=== PATIENT | female | born 1960 | race Caucasian/White ===

== ENCOUNTER → 2016-12-05 | Outpatient (CLI) | payer OTHER ==
[~2016-12-05] MED LIST: AUGMENTIN 875 M1 TAB PO; CIPRO250 MG PO; CORDROL20 MG PO; FLEXERIL10 MG PO; GEODON80 MG PO; KLONOPIN2 MG PO; LITHIUM CARBONATE 300 MG PO; MOTRIN800 MG PO; Metformin Hydr500 MG PO; NAVANE5 MG PO; PREDNICOT10 MG PO; PYRIDIUM200 MG PO; VENTOLIN0.09 MG/AC INH; VIBRAMYCIN100 MG PO; XANAX2 MG PO; ZOCOR40 MG PO
[2016-12-05 11:04] LABS: BASO # 0.1 10*3/uL (0.0-0.1); BASO % 0.9 % (0.0-1.0); EOS # 0.4 10*3/uL (0.0-0.4); EOS % 4.1 % (1.0-4.0); HEMATOCRIT 42.6 % (37.0-47.0); HEMOGLOBIN 13.4 g/dl (12.0-16.0); LYMPH # 2.9 10*3/uL (1.3-4.4); LYMPH % 31.5 % (27.0-41.0); MEAN CELL VOLUME 94.7 fl (81.0-99.0); MEAN CORPUSCULAR HGB 29.8 pg (27.0-31.0); MEAN CORPUSCULAR HGB CONC 31.5 g/dl (33.0-37.0); MEAN PLATELET VOLUME 10.3 fl (9.6-12.3); MONO # 0.6 10*3/uL (0.1-1.0); MONO % 6.9 % (3.0-9.0); NEUT # 5.2 10*3/uL (2.3-7.9); NEUT % 56.3 % (47.0-73.0); PLATELET COUNT AUTOMATED 239 10*3/uL (130-400); WHITE BLOOD COUNT 9.2 10*3/uL (4.8-10.8)
== END | disposition home or self-care (01) ==
LOC: LAB 10:35
PROVIDERS: Physician Assistant
DX: Z51.81 Encounter for therapeutic drug level monitoring (principal); Z79.899 Other long term (current) drug therapy

== ENCOUNTER 2017-03-28 16:14 | Inpatient (IN) | payer OTHER ==
[~2017-03-28] VITALS: Ht 157.5 cm; Wt 65.5 kg
[2017-03-28] VITALS (7 sets, daily range): BP systolic 120–156; BP diastolic 48–97
--- NOTE | ~2017-03-28 | ST ---
[place], [place] EXERCISE STRESS TEST REPORT NAME: MEL ESPITIA [facility] #: [id number] UNIT #: [id number] ROOM: 525 DOCTOR: MATY STAHL MD BIRTHDATE: [birth year] DOS: 03/29/2017 LEXISCAN STRESS EKG. Referred by Dr. Guzman. INDICATION: Central chest pain. The patient underwent standard protocol Lexiscan stress EKG after attempting treadmill protocol, but she did not achieve peak heart rate. The patient's baseline EKG showed normal sinus with a heart rate of 65 with a blood pressure of 132/84. The patient's peak heart rate was 121 with a blood pressure of 132/86. The patient had no EKG changes, chest pain or arrhythmias noted. SUMMARY OF FINDINGS: Unremarkable Lexiscan stress EKG. Please see separate report for results. MATY STAHL MD CM:STRESS:EXERCISE STRESS TEST REPORT [id number] MATY STAHL MD
[~2017-03-28 16:14] MED LIST changes: +LITHIUM CARBON300 M2 PO; -LITHIUM CARBONATE 300 MG PO; +XANAX2 M1 PO; -XANAX2 MG PO
[2017-03-28 16:33] LABS: BASO # 0.1 10*3/uL (0.0-0.1); BASO % 0.8 % (0.0-1.0); EOS # 0.7 10*3/uL (0.0-0.4); EOS % 5.7 % (1.0-4.0); HEMATOCRIT 41.3 % (37.0-47.0); HEMOGLOBIN 13.6 g/dl (12.0-16.0); LYMPH # 3.4 10*3/uL (1.3-4.4); MEAN CELL VOLUME 90.8 fl (81.0-99.0); MEAN CORPUSCULAR HGB 29.9 pg (27.0-31.0); MEAN CORPUSCULAR HGB CONC 32.9 g/dl (33.0-37.0); MEAN PLATELET VOLUME 10.6 fl (9.6-12.3); MONO # 0.8 10*3/uL (0.1-1.0); MONO % 6.7 % (3.0-9.0); NEUT # 6.4 10*3/uL (2.3-7.9); NEUT % 56.5 % (47.0-73.0); PLATELET COUNT AUTOMATED 238 10*3/uL (130-400); RED BLOOD COUNT 4.55 10*6/uL (4.10-5.10); WHITE BLOOD COUNT 11.4 10*3/uL (4.8-10.8)
[2017-03-28 16:44] LABS: ACT PARTIAL THROMBO TIME 25.4 SECONDS (20.8-31.5)
[2017-03-28 16:50] LABS: ALBUMIN 3.7 gm/dl (3.1-4.5); ALKALINE PHOSPHATASE 139 U/L (45-117); BUN 5 mg/dl (7-24); CHLORIDE 108 mmol/L (98-107); CREATININE 0.78 mg/dL (0.55-1.02); MAGNESIUM 2.2 mg/dL (1.5-2.1); POTASSIUM 3.7 mmol/L (3.5-5.1); SGOT/AST 18 IU/L (3-35); SGPT/ALT 22 U/L (12-78); SODIUM 138 mmol/L (136-145); TOTAL PROTEIN 7.2 gm/dL (6.4-8.2)
[2017-03-28 16:51] LABS: TROPONIN I < 0.015 ng/ml (<0.045)
[2017-03-28] MEDS ORDERED: ZANTAC 150150 MG PO (18:32)
[2017-03-28] MEDS ORDERED: AMBIEN10 M1 PO (18:33)
[2017-03-28] MEDS ORDERED: TRINTELLIX20 MG PO (18:33)
[2017-03-28] MEDS ORDERED: COGENTIN0.5 MG PO (18:33)
[2017-03-28] MEDS ORDERED: INCRUSE ELLI62.5 MCG INH (18:34)
[2017-03-28] MEDS ORDERED: PROVENTIL HFA6.7 GM INH (18:36)
[2017-03-29] VITALS: BP 126/65
[2017-03-29 06:25] LABS: BASO # 0.1 10*3/uL (0.0-0.1); BASO % 0.7 % (0.0-1.0); EOS # 0.6 10*3/uL (0.0-0.4); EOS % 6.3 % (1.0-4.0); HEMATOCRIT 39.6 % (37.0-47.0); HEMOGLOBIN 12.7 g/dl (12.0-16.0); LYMPH # 2.6 10*3/uL (1.3-4.4); LYMPH % 27.4 % (27.0-41.0); MEAN CELL VOLUME 92.1 fl (81.0-99.0); MEAN CORPUSCULAR HGB 29.5 pg (27.0-31.0); MEAN CORPUSCULAR HGB CONC 32.1 g/dl (33.0-37.0); MEAN PLATELET VOLUME 11.1 fl (9.6-12.3); MONO # 0.6 10*3/uL (0.1-1.0); MONO % 6.1 % (3.0-9.0); NEUT # 5.6 10*3/uL (2.3-7.9); NEUT % 59.3 % (47.0-73.0); PLATELET COUNT AUTOMATED 228 10*3/uL (130-400); RED CELL DISTRI WIDTH 13.1 % (0-14.5); WHITE BLOOD COUNT 9.5 10*3/uL (4.8-10.8)
[2017-03-29 06:27] LABS: ALBUMIN 3.3 gm/dl (3.1-4.5); ALKALINE PHOSPHATASE 124 U/L (45-117); BUN 6 mg/dl (7-24); CHLORIDE 111 mmol/L (98-107); CHOLESTEROL 142 mg/dL (<200); FREE T4 0.84 ng/dl (0.76-1.46); HDL CHOLESTEROL 38 mg/dl (40-60); LDL CHOLESTEROL 67 mg/dL (9-159); MAGNESIUM 2.2 mg/dL (1.5-2.1); PHOSPHOROUS 3.5 mg/dL (2.5-4.9); POTASSIUM 3.9 mmol/L (3.5-5.1); SGOT/AST 15 IU/L (3-35); SGPT/ALT 20 U/L (12-78); SODIUM 144 mmol/L (136-145); TOTAL PROTEIN 6.8 gm/dL (6.4-8.2); TRIGLYCERIDES 185 mg/dl (<150); VLDL CHOLESTEROL 37 mg/dL (6-40)
[2017-03-29 08:00] VITALS: BP 110/66
[2017-03-29 08:05] LABS: VITAMIN D, 25-HYDROXY 26.3 ng/mL (30-100)
[2017-03-29 16:00] VITALS: BP 130/82
== END 2017-03-29 18:40 | disposition home or self-care (01) | DRG 880 ==
LOC: ED 16:14 → EDHOLD 17:42 → 5E 17:42
PROVIDERS: Emergency Medicine; Family Medicine; ADMIT Internal Medicine
PROC: 4A02XM4 Measurement of Cardiac Total Activity, External Approach (ICD-10-PCS; principal; 2017-03-29)
PROC: 3E073KZ Introduction of Other Diagnostic Substance into Coronary Artery, Percutaneous Approach (ICD-10-PCS; 2017-03-29)
DX: F41.9 Anxiety disorder, unspecified (principal); E87.8 Other disorders of electrolyte and fluid balance, not elsewhere classified; I50.9 Heart failure, unspecified; E83.41 Hypermagnesemia; E11.9 Type 2 diabetes mellitus without complications; D72.829 Elevated white blood cell count, unspecified; J44.9 Chronic obstructive pulmonary disease, unspecified; F31.9 Bipolar disorder, unspecified; R03.0 Elevated blood-pressure reading, without diagnosis of hypertension; E78.5 Hyperlipidemia, unspecified; F43.10 Post-traumatic stress disorder, unspecified; F42.9 Obsessive-compulsive disorder, unspecified; F17.210 Nicotine dependence, cigarettes, uncomplicated; I25.2 Old myocardial infarction; Z98.51 Tubal ligation status; Z90.49 Acquired absence of other specified parts of digestive tract; Z90.710 Acquired absence of both cervix and uterus; Z88.5 Allergy status to narcotic agent; Z91.018 Allergy to other foods; Z82.49 Family history of ischemic heart disease and other diseases of the circulatory system; Z80.8 Family history of malignant neoplasm of other organs or systems; Z83.3 Family history of diabetes mellitus; Z71.6 Tobacco abuse counseling

== ENCOUNTER 2017-04-14 20:19 | Emergency (ER) | payer OTHER ==
[~2017-04-14] VITALS: Ht 157.4 cm; Wt 63.5 kg
[~2017-04-14 20:19] MED LIST changes: +AMBIEN10 M1 PO; +COGENTIN0.5 MG PO; +INCRUSE ELLI62.5 MCG INH; +PROVENTIL HFA6.7 GM INH; +TRINTELLIX20 MG PO; +ZANTAC 150150 MG PO
[2017-04-14 20:24] VITALS: BP 147/74
== END 2017-04-14 21:49 | disposition home or self-care (01) ==
LOC: ED 20:19
DX: S60.012A Contusion of left thumb without damage to nail, initial encounter (principal); F17.200 Nicotine dependence, unspecified, uncomplicated; Z90.49 Acquired absence of other specified parts of digestive tract; Z98.890 Other specified postprocedural states; Z98.51 Tubal ligation status; Z79.899 Other long term (current) drug therapy; Z88.5 Allergy status to narcotic agent; Z91.018 Allergy to other foods; W01.0XXA Fall on same level from slipping, tripping and stumbling without subsequent striking against object, initial encounter; Y93.01 Activity, walking, marching and hiking; Y92.89 Other specified places as the place of occurrence of the external cause; Y99.9 Unspecified external cause status

== ENCOUNTER 2017-11-01 08:55 | Emergency (ER) | payer OTHER ==
[~2017-11-01] VITALS: Wt 60.8 kg
[2017-11-01 09:02] VITALS: BP 129/93
[2017-11-01] MEDS ORDERED: GEODON20 MG PO (09:04)
[2017-11-01 09:15] LABS: BASO # 0.1 10*3/uL (0.0-0.1); BASO % 0.7 % (0.0-1.0); EOS # 0.4 10*3/uL (0.0-0.4); EOS % 4.8 % (1.0-4.0); HEMATOCRIT 38.9 % (37.0-47.0); HEMOGLOBIN 12.5 g/dl (12.0-16.0); LYMPH # 1.8 10*3/uL (1.3-4.4); LYMPH % 20.6 % (27.0-41.0); MEAN CELL VOLUME 91.7 fl (81.0-99.0); MEAN CORPUSCULAR HGB 29.5 pg (27.0-31.0); MEAN CORPUSCULAR HGB CONC 32.1 g/dl (33.0-37.0); MEAN PLATELET VOLUME 10.3 fl (9.6-12.3); MONO # 0.7 10*3/uL (0.1-1.0); MONO % 7.7 % (3.0-9.0); NEUT # 5.7 10*3/uL (2.3-7.9); PLATELET COUNT AUTOMATED 223 10*3/uL (130-400); RED BLOOD COUNT 4.24 10*6/uL (4.10-5.10); RED CELL DISTRI WIDTH 13.5 % (0-14.5); WHITE BLOOD COUNT 8.7 10*3/uL (4.8-10.8)
[2017-11-01 09:26] LABS: ALBUMIN 3.7 gm/dl (3.1-4.5); BUN 6 mg/dl (7-24)
[2017-11-01 09:41] LABS: ALKALINE PHOSPHATASE 124 U/L (45-117); CHLORIDE 110 mmol/L (98-107); CREATININE 0.81 mg/dL (0.55-1.02); POTASSIUM 3.8 mmol/L (3.5-5.1); SGOT/AST 15 IU/L (3-35); SGPT/ALT 16 U/L (12-78); SODIUM 142 mmol/L (136-145); TOTAL PROTEIN 7.1 gm/dL (6.4-8.2)
[2017-11-01] MEDS ORDERED: PROAIR HFA8.5 GM INH (10:43)
[2017-11-01] MEDS ORDERED: PREDNISONE20 M1 PO (10:43)
[2017-11-01] MEDS ORDERED: AUGMENTIN 875875 MG PO (10:43)
== END 2017-11-01 10:46 | disposition home or self-care (01) ==
LOC: ED 08:55
PROVIDERS: Emergency Medicine
DX: J20.9 Acute bronchitis, unspecified (principal); F17.200 Nicotine dependence, unspecified, uncomplicated; J44.9 Chronic obstructive pulmonary disease, unspecified; Z90.49 Acquired absence of other specified parts of digestive tract; Z98.890 Other specified postprocedural states; Z90.710 Acquired absence of both cervix and uterus; Z98.51 Tubal ligation status; Z79.899 Other long term (current) drug therapy; Z88.5 Allergy status to narcotic agent; Z91.018 Allergy to other foods

== ENCOUNTER → 2017-12-21 | Outpatient (CLI) | payer OTHER ==
[~2017-12-21] MED LIST changes: +AUGMENTIN 875875 MG PO; +GEODON20 MG PO; +PREDNISONE20 M1 PO; +PROAIR HFA8.5 GM INH
[2017-12-21 09:08] LABS: BASO # 0.1 10*3/uL (0.0-0.1); BASO % 0.9 % (0.0-1.0); EOS # 0.7 10*3/uL (0.0-0.4); EOS % 6.7 % (1.0-4.0); HEMATOCRIT 43.6 % (37.0-47.0); HEMOGLOBIN 13.7 g/dl (12.0-16.0); LYMPH # 2.5 10*3/uL (1.3-4.4); LYMPH % 23.6 % (27.0-41.0); MEAN CELL VOLUME 94.6 fl (81.0-99.0); MEAN CORPUSCULAR HGB 29.7 pg (27.0-31.0); MEAN CORPUSCULAR HGB CONC 31.4 g/dl (33.0-37.0); MEAN PLATELET VOLUME 10.3 fl (9.6-12.3); MONO # 0.8 10*3/uL (0.1-1.0); MONO % 7.9 % (3.0-9.0); NEUT # 6.3 10*3/uL (2.3-7.9); NEUT % 60.6 % (47.0-73.0); PLATELET COUNT AUTOMATED 212 10*3/uL (130-400); RED BLOOD COUNT 4.61 10*6/uL (4.10-5.10); RED CELL DISTRI WIDTH 13.2 % (0-14.5); WHITE BLOOD COUNT 10.4 10*3/uL (4.8-10.8)
[2017-12-21 09:43] LABS: ALBUMIN 3.8 gm/dl (3.1-4.5); ALKALINE PHOSPHATASE 131 U/L (45-117); BUN 14 mg/dl (7-24); CHLORIDE 110 mmol/L (98-107); CREATININE 0.95 mg/dL (0.55-1.02); POTASSIUM 4.7 mmol/L (3.5-5.1); SGOT/AST 17 IU/L (3-35); SGPT/ALT 26 U/L (12-78); SODIUM 141 mmol/L (136-145); TOTAL PROTEIN 7.3 gm/dL (6.4-8.2)
[2017-12-21 12:51] LABS: VITAMIN D, 25-HYDROXY 15.1 ng/mL (30-100)
== END | disposition home or self-care (01) ==
LOC: LAB 08:46
PROVIDERS: Physician Assistant
DX: Z51.81 Encounter for therapeutic drug level monitoring (principal); Z79.899 Other long term (current) drug therapy

== ENCOUNTER 2018-04-17 16:57 | Emergency (ER) | payer OTHER ==
[~2018-04-17] VITALS: Ht 157.4 cm; Wt 55.3 kg
[~2018-04-17 16:57] MED LIST changes: +AUGMENTIN 875-875 MG PO
[2018-04-17 17:00] VITALS: BP 138/87
[2018-04-17] MEDS ORDERED: METFORMIN HYDR500 MG PO (17:45)
== END 2018-04-17 18:14 | disposition home or self-care (01) ==
LOC: ED 16:57
DX: Z76.0 Encounter for issue of repeat prescription (principal); R51 Headache; F17.200 Nicotine dependence, unspecified, uncomplicated; Z88.6 Allergy status to analgesic agent; Z91.018 Allergy to other foods; Z79.84 Long term (current) use of oral hypoglycemic drugs; Z79.899 Other long term (current) drug therapy; Z90.49 Acquired absence of other specified parts of digestive tract; Z90.710 Acquired absence of both cervix and uterus; Z98.51 Tubal ligation status; Z90.89 Acquired absence of other organs

== ENCOUNTER 2018-04-27 11:54 | Emergency (ER) | payer OTHER ==
[~2018-04-27] VITALS: Ht 157.4 cm; Wt 55.3 kg
[~2018-04-27 11:54] MED LIST changes: +METFORMIN HYDR500 MG PO
[2018-04-27 12:00] VITALS: BP 120/61
[2018-04-27] MEDS ORDERED: DOXEPIN HCL25 MG PO (12:03)
[2018-04-27] MEDS ORDERED: Motrin,Rufen800 MG PO (13:54)
== END 2018-04-27 14:17 | disposition home or self-care (01) ==
LOC: ED 11:54
DX: S40.021A Contusion of right upper arm, initial encounter (principal); F17.200 Nicotine dependence, unspecified, uncomplicated; I50.9 Heart failure, unspecified; J44.9 Chronic obstructive pulmonary disease, unspecified; E11.9 Type 2 diabetes mellitus without complications; E78.5 Hyperlipidemia, unspecified; E78.00 Pure hypercholesterolemia, unspecified; F42.9 Obsessive-compulsive disorder, unspecified; I25.2 Old myocardial infarction; Z90.49 Acquired absence of other specified parts of digestive tract; Z98.890 Other specified postprocedural states; Z90.710 Acquired absence of both cervix and uterus; Z98.51 Tubal ligation status; Z88.5 Allergy status to narcotic agent; Z91.018 Allergy to other foods; Z79.899 Other long term (current) drug therapy; W10.8XXA Fall (on) (from) other stairs and steps, initial encounter; Y93.89 Activity, other specified; Y92.099 Unspecified place in other non-institutional residence as the place of occurrence of the external cause; Y99.9 Unspecified external cause status

== ENCOUNTER → 2018-05-09 | Outpatient (CLI) | payer OTHER ==
[~2018-05-09] MED LIST changes: +DOXEPIN HCL25 MG PO; +Motrin,Rufen800 MG PO
== END | disposition home or self-care (01) ==
LOC: RAD 03:32 → ORTHO 03:32
DX: M25.521 Pain in right elbow (principal); J43.9 Emphysema, unspecified

== ENCOUNTER → 2018-05-23 | Outpatient (CLI) | payer OTHER | END | disposition home or self-care (01) | LOC: ORTHO 02:36 → RAD 08:00 → ORTHO 16:31 | DX: M25.521 Pain in right elbow (principal); M25.531 Pain in right wrist ==

== ENCOUNTER 2018-06-28 22:39 | Inpatient (IN) | payer OTHER ==
[~2018-06-28] VITALS: Ht 157.4 cm; Wt 60.9 kg
--- NOTE | ~2018-06-28 | EKG ---
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
--- NOTE | ~2018-06-28 | EKG ---
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
--- NOTE | ~2018-06-28 | EKG ---
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
--- NOTE | ~2018-06-28 | EKG ---
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
[2018-06-28 22:44] VITALS: BP 123/78
[2018-06-28 23:31] VITALS: BP 126/75
[2018-06-28 23:41] LABS: BASO # 0.1 10*3/uL (0.0-0.1); BASO % 0.6 % (0.0-1.0); EOS # 0.5 10*3/uL (0.0-0.4); EOS % 3.2 % (1.0-4.0); HEMATOCRIT 42.2 % (37.0-47.0); HEMOGLOBIN 13.4 g/dl (12.0-16.0); LYMPH # 3.5 10*3/uL (1.3-4.4); LYMPH % 24.2 % (27.0-41.0); MEAN CELL VOLUME 93.4 fl (81.0-99.0); MEAN CORPUSCULAR HGB 29.6 pg (27.0-31.0); MEAN CORPUSCULAR HGB CONC 31.8 g/dl (33.0-37.0); MEAN PLATELET VOLUME 10.7 fl (9.6-12.3); MONO # 0.8 10*3/uL (0.1-1.0); MONO % 5.7 % (3.0-9.0); NEUT # 9.5 10*3/uL (2.3-7.9); PLATELET COUNT AUTOMATED 214 10*3/uL (130-400); RED BLOOD COUNT 4.52 10*6/uL (4.10-5.10); RED CELL DISTRI WIDTH 13.1 % (0-14.5); WHITE BLOOD COUNT 14.5 10*3/uL (4.8-10.8)
[2018-06-28 23:43] VITALS: BP 114/72
[2018-06-28 23:51] LABS: ACT PARTIAL THROMBO TIME 24.8 SECONDS (20.8-31.5)
[2018-06-28 23:53] VITALS: BP 118/78
[2018-06-28 23:58] LABS: ALKALINE PHOSPHATASE 107 U/L (45-117); BUN 10 mg/dl (7-24); CHLORIDE 106 mmol/L (98-107); POTASSIUM 3.1 mmol/L (3.5-5.1); SGOT/AST 22 IU/L (3-35); SGPT/ALT 26 U/L (12-78); SODIUM 138 mmol/L (136-145); TOTAL PROTEIN 7.3 gm/dL (6.4-8.2)
[2018-06-29 00:03] VITALS: BP 117/76
[2018-06-29 00:06] LABS: TROPONIN I < 0.015 ng/ml (<0.045)
[2018-06-29 00:19] VITALS: BP 128/78
[2018-06-29 01:20] VITALS: BP 113/69
[2018-06-29 02:00] VITALS: BP 115/70
[2018-06-29 02:13] VITALS: BP 156/88
[2018-06-29 05:00] LABS: BASO # 0.1 10*3/uL (0.0-0.1); BASO % 0.6 % (0.0-1.0); EOS # 0.4 10*3/uL (0.0-0.4); EOS % 4.3 % (1.0-4.0); HEMATOCRIT 41.1 % (37.0-47.0); LYMPH # 2.8 10*3/uL (1.3-4.4); LYMPH % 29.4 % (27.0-41.0); MEAN CELL VOLUME 93.6 fl (81.0-99.0); MEAN CORPUSCULAR HGB 29.6 pg (27.0-31.0); MEAN CORPUSCULAR HGB CONC 31.6 g/dl (33.0-37.0); MEAN PLATELET VOLUME 10.1 fl (9.6-12.3); MONO # 0.7 10*3/uL (0.1-1.0); MONO % 7.3 % (3.0-9.0); NEUT # 5.6 10*3/uL (2.3-7.9); NEUT % 58.2 % (47.0-73.0); PLATELET COUNT AUTOMATED 193 10*3/uL (130-400); RED BLOOD COUNT 4.39 10*6/uL (4.10-5.10); RED CELL DISTRI WIDTH 13.2 % (0-14.5); WHITE BLOOD COUNT 9.6 10*3/uL (4.8-10.8)
[2018-06-29 05:16] LABS: ALBUMIN 3.4 gm/dl (3.1-4.5); ALKALINE PHOSPHATASE 100 U/L (45-117); BUN 8 mg/dl (7-24); CHLORIDE 111 mmol/L (98-107); CREATININE 0.74 mg/dL (0.55-1.02); LIPASE 138 U/L (73-393); PHOSPHOROUS 3.7 mg/dL (2.5-4.9); SGOT/AST 17 IU/L (3-35); SGPT/ALT 21 U/L (12-78); SODIUM 144 mmol/L (136-145); TOTAL PROTEIN 6.9 gm/dL (6.4-8.2)
[2018-06-29 05:22] LABS: POTASSIUM 4.1 mmol/L (3.5-5.1)
[2018-06-29 05:25] LABS: THYROID STIM HORMONE (HS) 0.879 uIU/ml (0.358-4.75)
== END 2018-06-29 11:35 | disposition home or self-care (01) | DRG 205 ==
LOC: ED 22:39 → EDHOLD 06-29 01:25 → 4E 06-29 01:38
PROVIDERS: Emergency Medicine Emergency Medical Services; Internal Medicine
DX: M94.0 Chondrocostal junction syndrome [Tietze] (principal); J18.9 Pneumonia, unspecified organism; F41.9 Anxiety disorder, unspecified; K21.9 Gastro-esophageal reflux disease without esophagitis; F31.9 Bipolar disorder, unspecified; I50.9 Heart failure, unspecified; J44.9 Chronic obstructive pulmonary disease, unspecified; E78.5 Hyperlipidemia, unspecified; F42.9 Obsessive-compulsive disorder, unspecified; F43.10 Post-traumatic stress disorder, unspecified; F17.200 Nicotine dependence, unspecified, uncomplicated; E87.6 Hypokalemia; Z71.6 Tobacco abuse counseling; Z90.49 Acquired absence of other specified parts of digestive tract; I25.2 Old myocardial infarction; Z90.710 Acquired absence of both cervix and uterus; Z88.5 Allergy status to narcotic agent; Z88.8 Allergy status to other drugs, medicaments and biological substances; Z98.51 Tubal ligation status; Z80.8 Family history of malignant neoplasm of other organs or systems; Z82.49 Family history of ischemic heart disease and other diseases of the circulatory system; Z83.3 Family history of diabetes mellitus; Z79.84 Long term (current) use of oral hypoglycemic drugs; Z79.899 Other long term (current) drug therapy; I25.10 Atherosclerotic heart disease of native coronary artery without angina pectoris

== ENCOUNTER 2018-08-20 21:53 | Emergency (ER) | payer OTHER ==
[~2018-08-20] VITALS: Ht 157.4 cm; Wt 49.9 kg
[2018-08-20 21:57] VITALS: BP 145/85
[2018-08-20] MEDS ORDERED: Motrin,Rufen800 MG PO (23:46)
== END 2018-08-21 00:05 | disposition home or self-care (01) ==
LOC: ED 21:53
DX: S60.222A Contusion of left hand, initial encounter (principal); F17.200 Nicotine dependence, unspecified, uncomplicated; Z91.018 Allergy to other foods; Z88.6 Allergy status to analgesic agent; Z79.899 Other long term (current) drug therapy; W22.03XA Walked into furniture, initial encounter; Y93.89 Activity, other specified; Y92.090 Kitchen in other non-institutional residence as the place of occurrence of the external cause; Y99.8 Other external cause status

== ENCOUNTER 2018-09-28 10:38 | Emergency (ER) | payer OTHER ==
[~2018-09-28] VITALS: Ht 157.4 cm; Wt 59.0 kg
[2018-09-28 11:42] VITALS: BP 116/79
[2018-09-28] MEDS ORDERED: TESSALON PERLE100 MG PO (12:20)
[2018-09-28] MEDS ORDERED: VIBRAMYCIN100 MG PO (12:20)
[2018-09-28] MEDS ORDERED: PREDNISONE50 MG PO (12:20)
== END 2018-09-28 12:31 | disposition home or self-care (01) ==
LOC: ED 10:38
DX: J44.1 Chronic obstructive pulmonary disease with (acute) exacerbation (principal); I25.10 Atherosclerotic heart disease of native coronary artery without angina pectoris; E11.9 Type 2 diabetes mellitus without complications; K21.9 Gastro-esophageal reflux disease without esophagitis; I25.2 Old myocardial infarction; E78.5 Hyperlipidemia, unspecified; F17.210 Nicotine dependence, cigarettes, uncomplicated; Z91.018 Allergy to other foods; Z88.5 Allergy status to narcotic agent; Z79.899 Other long term (current) drug therapy; Z79.84 Long term (current) use of oral hypoglycemic drugs; Z90.49 Acquired absence of other specified parts of digestive tract; Z90.710 Acquired absence of both cervix and uterus

== ENCOUNTER 2018-11-08 15:26 | Emergency (ER) | payer OTHER ==
[~2018-11-08] VITALS: Wt 56.2 kg
[2018-11-08 15:26] VITALS: BP 131/73
[~2018-11-08 15:26] MED LIST changes: +PREDNISONE50 MG PO; +TESSALON PERLE100 MG PO
== END 2018-11-08 16:13 | disposition home or self-care (01) ==
LOC: ED 15:26
DX: R51 Headache (principal); R22.0 Localized swelling, mass and lump, head; F17.200 Nicotine dependence, unspecified, uncomplicated; Z91.018 Allergy to other foods; Z88.5 Allergy status to narcotic agent; Z79.899 Other long term (current) drug therapy; Z79.2 Long term (current) use of antibiotics; Z90.49 Acquired absence of other specified parts of digestive tract; Z90.710 Acquired absence of both cervix and uterus

== ENCOUNTER 2019-05-13 10:50 | Emergency (ER) | payer OTHER ==
[~2019-05-13] VITALS: Ht 157.4 cm; Wt 61.2 kg
[2019-05-13 10:53] VITALS: BP 121/79
[2019-05-13] MEDS ORDERED: TESSALON PERLE100 M1 PO (12:58)
[2019-05-13] MEDS ORDERED: PREDNISONE20 M1 PO (12:58)
[2019-05-13] MEDS ORDERED: PROVENTIL HFA6.7 GM INH (12:58)
== END 2019-05-13 13:25 | disposition home or self-care (01) ==
LOC: ED 10:50
DX: J44.1 Chronic obstructive pulmonary disease with (acute) exacerbation (principal); F17.200 Nicotine dependence, unspecified, uncomplicated; Z91.018 Allergy to other foods; Z88.5 Allergy status to narcotic agent; Z79.899 Other long term (current) drug therapy

== ENCOUNTER 2019-10-27 21:34 | Emergency (ER) | payer OTHER ==
[~2019-10-27] VITALS: Ht 157.4 cm; Wt 61.7 kg
[~2019-10-27 21:34] MED LIST changes: +TESSALON PERLE100 M1 PO
[2019-10-27 21:42] VITALS: BP 142/78
[2019-10-27 22:48] LABS: BASO # 0.1 10*3/uL (0.0-0.1); BASO % 0.6 % (0.0-1.0); EOS # 0.5 10*3/uL (0.0-0.4); HEMATOCRIT 42.9 % (37.0-47.0); HEMOGLOBIN 13.8 g/dl (12.0-16.0); LYMPH # 3.2 10*3/uL (1.3-4.4); LYMPH % 25.8 % (27.0-41.0); MEAN CELL VOLUME 92.5 fl (81.0-99.0); MEAN CORPUSCULAR HGB 29.7 pg (27.0-31.0); MEAN CORPUSCULAR HGB CONC 32.2 g/dl (33.0-37.0); MEAN PLATELET VOLUME 10.8 fl (9.6-12.3); MONO # 1.1 10*3/uL (0.1-1.0); MONO % 8.7 % (3.0-9.0); NEUT # 7.5 10*3/uL (2.3-7.9); NEUT % 60.7 % (47.0-73.0); PLATELET COUNT AUTOMATED 209 10*3/uL (130-400); RED BLOOD COUNT 4.64 10*6/uL (4.10-5.10); RED CELL DISTRI WIDTH 13.2 % (0-14.5); WHITE BLOOD COUNT 12.3 10*3/uL (4.8-10.8)
[2019-10-27 23:05] LABS: ALBUMIN 3.6 gm/dl (3.1-4.5); ALKALINE PHOSPHATASE 113 U/L (45-117); BUN 11 mg/dl (7-24); CHLORIDE 107 mmol/L (98-107); CREATININE 0.83 mg/dL (0.55-1.02); POTASSIUM 3.5 mmol/L (3.5-5.1); SGOT/AST 16 IU/L (3-35); SGPT/ALT 23 U/L (12-78); SODIUM 139 mmol/L (136-145); TOTAL PROTEIN 7.5 gm/dL (6.4-8.2)
[2019-10-28] MEDS ORDERED: VIBRAMYCIN100 MG PO (01:50)
== END 2019-10-28 01:59 | disposition home or self-care (01) ==
LOC: ED 21:34
PROVIDERS: Emergency Medicine
DX: J18.9 Pneumonia, unspecified organism (principal); I25.10 Atherosclerotic heart disease of native coronary artery without angina pectoris; J44.9 Chronic obstructive pulmonary disease, unspecified; E11.9 Type 2 diabetes mellitus without complications; K21.9 Gastro-esophageal reflux disease without esophagitis; E78.5 Hyperlipidemia, unspecified; F32.9 Major depressive disorder, single episode, unspecified; J45.909 Unspecified asthma, uncomplicated; F41.9 Anxiety disorder, unspecified; Z88.8 Allergy status to other drugs, medicaments and biological substances; Z88.5 Allergy status to narcotic agent; Z79.899 Other long term (current) drug therapy; Z90.49 Acquired absence of other specified parts of digestive tract

== ENCOUNTER 2020-02-11 12:51 | Emergency (ER) | payer OTHER ==
[~2020-02-11] VITALS: Ht 157.4 cm; Wt 66.7 kg
[2020-02-11 13:14] VITALS: BP 130/76
[2020-02-11 13:38] LABS: BASO # 0.1 10*3/uL (0.0-0.1); BASO % 0.8 % (0.0-1.0); EOS # 0.4 10*3/uL (0.0-0.4); EOS % 4.2 % (1.0-4.0); HEMATOCRIT 44.2 % (37.0-47.0); LYMPH # 2.7 10*3/uL (1.3-4.4); LYMPH % 32.8 % (27.0-41.0); MEAN CELL VOLUME 89.8 fl (81.0-99.0); MEAN CORPUSCULAR HGB 28.9 pg (27.0-31.0); MEAN CORPUSCULAR HGB CONC 32.1 g/dl (33.0-37.0); MEAN PLATELET VOLUME 10.4 fl (9.6-12.3); MONO # 0.6 10*3/uL (0.1-1.0); MONO % 6.7 % (3.0-9.0); NEUT # 4.5 10*3/uL (2.3-7.9); NEUT % 55.1 % (47.0-73.0); PLATELET COUNT AUTOMATED 258 10*3/uL (130-400); RED BLOOD COUNT 4.92 10*6/uL (4.10-5.10); RED CELL DISTRI WIDTH 13.3 % (0-14.5); WHITE BLOOD COUNT 8.3 10*3/uL (4.8-10.8)
[2020-02-11 13:48] LABS: ACT PARTIAL THROMBO TIME 30.8 SECONDS (20.0-32.1)
[2020-02-11 13:55] LABS: ALBUMIN 3.6 gm/dl (3.1-4.5); ALKALINE PHOSPHATASE 122 U/L (45-117); BUN 9 mg/dl (7-24); CHLORIDE 110 mmol/L (98-107); CREATININE 0.79 mg/dL (0.55-1.02); POTASSIUM 3.8 mmol/L (3.5-5.1); SGOT/AST 9 IU/L (3-35); SGPT/ALT 19 U/L (12-78); SODIUM 140 mmol/L (136-145); TOTAL PROTEIN 7.4 gm/dL (6.4-8.2)
[2020-02-11 13:56] LABS: TROPONIN I < 0.015 ng/ml (<0.045)
[2020-02-11] MEDS ORDERED: VIBRAMYCIN100 MG PO (15:47)
[2020-02-11] MEDS ORDERED: PREDNISONE20 M1 PO (15:53)
[2020-02-11] MEDS ORDERED: Ipratropium Brom3 ML INH (15:55)
== END 2020-02-11 16:07 | disposition home or self-care (01) ==
LOC: ED 12:51
PROVIDERS: Emergency Medicine
DX: J44.1 Chronic obstructive pulmonary disease with (acute) exacerbation (principal); I25.2 Old myocardial infarction; I50.9 Heart failure, unspecified; F17.200 Nicotine dependence, unspecified, uncomplicated; Z88.6 Allergy status to analgesic agent; Z91.018 Allergy to other foods; Z88.8 Allergy status to other drugs, medicaments and biological substances; Z79.899 Other long term (current) drug therapy

== ENCOUNTER → 2020-08-18 | Outpatient (CLI) | payer OTHER ==
[~2020-08-18] MED LIST changes: +COGENTIN PO; -GEODON20 MG PO; +Ipratropium Brom3 ML INH; +LIPITOR40 MG PO; +MAXALT PO; +MELATONIN10 M6 SL; +PRILOSEC20 M1 PO; +VITAMIN B-6 PO; +VITAMIN B12 PO; +VITAMIN D325 MCG PO
== END | disposition home or self-care (01) ==
LOC: CARD 00:12
PROVIDERS: ATTEND Internal Medicine Cardiovascular Disease
DX: I50.9 Heart failure, unspecified (principal); R07.2 Precordial pain

== ENCOUNTER → 2020-11-15 | Outpatient (CLI) | payer OTHER | END | disposition home or self-care (01) | LOC: LAB 10:42 | PROVIDERS: ATTEND Internal Medicine Critical Care Medicine | DX: R53.83 Other fatigue (principal) ==

== ENCOUNTER 2021-04-27 20:10 | Emergency (ER) | payer OTHER ==
[~2021-04-27] VITALS: Ht 157.4 cm; Wt 68.9 kg
[2021-04-27 20:28] VITALS: BP 113/80
[2021-04-27] MEDS ORDERED: PREDNISONE20 M1 PO (22:38)
[2021-04-27] MEDS ORDERED: VIBRAMYCIN100 MG PO (22:38)
== END 2021-04-27 22:00 | disposition home or self-care (01) ==
LOC: ED 20:10
DX: J45.909 Unspecified asthma, uncomplicated (principal); Z20.822 Contact with and (suspected) exposure to COVID-19; J44.9 Chronic obstructive pulmonary disease, unspecified; F17.200 Nicotine dependence, unspecified, uncomplicated; Z88.6 Allergy status to analgesic agent; Z91.018 Allergy to other foods; Z79.899 Other long term (current) drug therapy

== ENCOUNTER 2021-07-07 18:24 | Emergency (ER) | payer OTHER ==
[~2021-07-07] VITALS: Ht 157.4 cm; Wt 68.0 kg
[2021-07-07] MEDS ORDERED: DOXEPIN HCL25 MG PO (18:57)
[2021-07-07] MEDS ORDERED: PHARMASSURE VI100 MG PO (18:57)
[2021-07-07] MEDS ORDERED: ZIPRASIDONE HCL80 M1 PO (18:58)
[2021-07-07 19:57] LABS: BASO # 0.1 10*3/uL (0.0-0.1); BASO % 0.7 % (0.0-1.0); EOS # 0.5 10*3/uL (0.0-0.4); EOS % 4.5 % (1.0-4.0); HEMATOCRIT 41.7 % (37.0-47.0); LYMPH # 2.3 10*3/uL (1.3-4.4); LYMPH % 20.2 % (27.0-41.0); MEAN CORPUSCULAR HGB 29.3 pg (27.0-31.0); MEAN CORPUSCULAR HGB CONC 32.1 g/dl (33.0-37.0); MEAN PLATELET VOLUME 10.9 fl (9.6-12.3); MONO # 0.7 10*3/uL (0.1-1.0); MONO % 5.9 % (3.0-9.0); NEUT # 7.7 10*3/uL (2.3-7.9); NEUT % 68.4 % (47.0-73.0); PLATELET COUNT AUTOMATED 218 10*3/uL (130-400); RED BLOOD COUNT 4.58 10*6/uL (4.10-5.10); RED CELL DISTRI WIDTH 13.4 % (0-14.5); WHITE BLOOD COUNT 11.3 10*3/uL (4.8-10.8)
[2021-07-07 20:13] LABS: ALBUMIN 3.4 gm/dl (3.1-4.5); ALKALINE PHOSPHATASE 127 U/L (45-117); BUN 7 mg/dl (7-24); CHLORIDE 106 mmol/L (98-107); CREATININE 0.75 mg/dL (0.55-1.02); POTASSIUM 3.5 mmol/L (3.5-5.1); SGOT/AST 10 IU/L (3-35); SGPT/ALT 23 U/L (12-78); SODIUM 141 mmol/L (136-145); TOTAL PROTEIN 7.3 gm/dL (6.4-8.2)
[2021-07-07] MEDS ORDERED: LEVOFLOXACIN750 M2 PO (20:37)
[2021-07-07] MEDS ORDERED: PREDNISONE20 M1 PO (20:37)
[2021-07-07 20:43] VITALS: BP 114/80
== END 2021-07-07 20:57 | disposition home or self-care (01) ==
LOC: ED 18:24
PROVIDERS: Internal Medicine
DX: J06.9 Acute upper respiratory infection, unspecified (principal); Z20.822 Contact with and (suspected) exposure to COVID-19; J44.1 Chronic obstructive pulmonary disease with (acute) exacerbation; Z88.8 Allergy status to other drugs, medicaments and biological substances; Z91.018 Allergy to other foods; Z79.899 Other long term (current) drug therapy

== ENCOUNTER 2023-03-27 16:27 | Emergency (ER) | payer OTHER ==
[~2023-03-27] VITALS: Wt 68.0 kg
[~2023-03-27 16:27] MED LIST changes: +LEVOFLOXACIN750 M2 PO; +PHARMASSURE VI100 MG PO; +ZIPRASIDONE HCL80 M1 PO
[2023-03-27 16:40] VITALS: BP 145/100
== END 2023-03-27 21:14 | disposition home or self-care (01) ==
LOC: ED 16:27
DX: S60.222A Contusion of left hand, initial encounter (principal); J44.9 Chronic obstructive pulmonary disease, unspecified; E11.9 Type 2 diabetes mellitus without complications; F41.9 Anxiety disorder, unspecified; I25.2 Old myocardial infarction; I50.9 Heart failure, unspecified; K21.9 Gastro-esophageal reflux disease without esophagitis; F31.9 Bipolar disorder, unspecified; Z91.018 Allergy to other foods; Z88.5 Allergy status to narcotic agent; Z88.8 Allergy status to other drugs, medicaments and biological substances; Z90.49 Acquired absence of other specified parts of digestive tract; Z98.890 Other specified postprocedural states; Z90.710 Acquired absence of both cervix and uterus; Z90.89 Acquired absence of other organs; Z98.51 Tubal ligation status; F17.200 Nicotine dependence, unspecified, uncomplicated; W22.03XA Walked into furniture, initial encounter; Y93.01 Activity, walking, marching and hiking; Y92.89 Other specified places as the place of occurrence of the external cause; Y99.8 Other external cause status

== ENCOUNTER → 2023-11-20 | Outpatient (CLI) | payer OTHER ==
[~2023-11-20] MED LIST changes: +Regadenoson 0.4 MG/5 ML SYR IV ONE; +Technetium Tc 99M Tetrofosmi 0.23 MG KIT IJ SCH
== END | disposition home or self-care (01) ==
LOC: CARD 01:30
PROVIDERS: ATTEND Internal Medicine Cardiovascular Disease
DX: R07.89 Other chest pain (principal); E78.5 Hyperlipidemia, unspecified; E11.9 Type 2 diabetes mellitus without complications; K21.9 Gastro-esophageal reflux disease without esophagitis

== ENCOUNTER → 2023-11-26 | Outpatient (CLI) | payer OTHER ==
[~2023-11-26] MED LIST changes: -Regadenoson 0.4 MG/5 ML SYR IV ONE; -Technetium Tc 99M Tetrofosmi 0.23 MG KIT IJ SCH
[2023-11-26 12:00] LABS: BASO # 0.1 10*3/uL (0.0-0.1); BASO % 1.1 % (0.0-1.0); EOS # 0.6 10*3/uL (0.0-0.4); EOS % 7.1 % (1.0-4.0); HEMATOCRIT 46.1 % (37.0-47.0); LYMPH # 2.4 10*3/uL (1.3-4.4); LYMPH % 28.8 % (27.0-41.0); MEAN CELL VOLUME 93.7 fl (81.0-99.0); MEAN CORPUSCULAR HGB 28.9 pg (27.0-31.0); MEAN CORPUSCULAR HGB CONC 30.8 g/dl (33.0-37.0); MONO # 0.5 10*3/uL (0.1-1.0); MONO % 5.5 % (3.0-9.0); NEUT # 4.8 10*3/uL (2.3-7.9); NEUT % 57.3 % (47.0-73.0); PLATELET COUNT AUTOMATED 242 10*3/uL (130-400); RED BLOOD COUNT 4.92 10*6/uL (4.10-5.10); RED CELL DISTRI WIDTH 13.2 % (0-14.5); WHITE BLOOD COUNT 8.3 10*3/uL (4.8-10.8)
[2023-11-26 12:27] LABS: BUN 6 mg/dl (9-23); CHLORIDE 105 mmol/L (98-107)
== END | disposition home or self-care (01) ==
LOC: CARD 01:41 → LAB 01:41 → CARD 10:30
PROVIDERS: Internal Medicine Pulmonary Disease; ATTEND Internal Medicine Cardiovascular Disease
DX: R07.89 Other chest pain (principal); E11.9 Type 2 diabetes mellitus without complications; K21.9 Gastro-esophageal reflux disease without esophagitis; E78.5 Hyperlipidemia, unspecified; J44.9 Chronic obstructive pulmonary disease, unspecified; R91.1 Solitary pulmonary nodule; J96.10 Chronic respiratory failure, unspecified whether with hypoxia or hypercapnia

== ENCOUNTER → 2023-11-27 | Outpatient (CLI) | payer OTHER ==
[~2023-11-27] MED LIST changes: +Albuterol Sulfate 2.5 MG/3 ML VIAL NEB ONE
== END ==
LOC: CP 00:25
PROVIDERS: ATTEND Internal Medicine Pulmonary Disease
DX: J44.9 Chronic obstructive pulmonary disease, unspecified (principal)

== ENCOUNTER 2024-04-01 20:26 | Emergency (ER) | payer OTHER ==
[~2024-04-01] VITALS: Ht 154.9 cm; Wt 63.5 kg
[~2024-04-01 20:26] MED LIST changes: -Albuterol Sulfate 2.5 MG/3 ML VIAL NEB ONE
[2024-04-01 20:39] VITALS: BP 118/74
[2024-04-01] MEDS ORDERED: JARDIANCE25 MG PO (20:41)
[2024-04-01] MEDS ORDERED: ROZEREM8 MG PO (20:41)
[2024-04-01] MEDS ORDERED: JANUVIA100 MG PO (20:41)
[2024-04-01] MEDS ORDERED: Albuterol Sulf/Ipratropium 3 ML VIAL NEB ONE (21:35)
[2024-04-01] MEDS ORDERED: methylPREDNISolone sod succ 125 MG VIAL IV ONE (21:35)
[2024-04-01 21:43] LABS: BASO # 0.1 10*3/uL (0.0-0.1); BASO % 0.6 % (0.0-1.0); EOS # 0.5 10*3/uL (0.0-0.4); EOS % 4.9 % (1.0-4.0); HEMATOCRIT 43.3 % (37.0-47.0); LYMPH # 3.4 10*3/uL (1.3-4.4); MEAN CELL VOLUME 89.5 fl (81.0-99.0); MEAN CORPUSCULAR HGB 28.5 pg (27.0-31.0); MEAN CORPUSCULAR HGB CONC 31.9 g/dl (33.0-37.0); MEAN PLATELET VOLUME 10.4 fl (9.6-12.3); MONO # 0.6 10*3/uL (0.1-1.0); MONO % 5.9 % (3.0-9.0); NEUT # 5.6 10*3/uL (2.3-7.9); NEUT % 55.3 % (47.0-73.0); PLATELET COUNT AUTOMATED 241 10*3/uL (130-400); RED BLOOD COUNT 4.84 10*6/uL (4.10-5.10); RED CELL DISTRI WIDTH 13.6 % (0-14.5); WHITE BLOOD COUNT 10.2 10*3/uL (4.8-10.8)
[2024-04-01 22:08] LABS: ALKALINE PHOSPHATASE 122 U/L (46-116); CHLORIDE 106 mmol/L (98-107); SGPT/ALT 12 U/L (5-49); TOTAL PROTEIN 6.8 gm/dL (6.0-8.0)
[2024-04-01 22:09] LABS: BUN < 5 mg/dl (9-23)
[2024-04-01] MEDS ORDERED: POTASSIUM CHLORIDE 20 MEQ TAB PO ONE (22:30)
[2024-04-01] MEDS ORDERED: PREDNISONE20 M1 PO (23:03)
[2024-04-01] MEDS ORDERED: AMOX-CLAV 875-1 EACH PO (23:03)
[2024-04-01] MEDS ORDERED: AVPAK AZITHROM250 M1 PO (23:03)
[2024-04-01] MEDS ORDERED: AZITHROMYCIN 250 MG TAB PO ONE (23:05)
[2024-04-01] MEDS ORDERED: Amoxicillin/Clavulanate Pota 875 MG TAB PO ONE (23:05)
== END 2024-04-01 23:18 | disposition home or self-care (01) ==
LOC: ED 20:26
PROVIDERS: Nurse Practitioner Family
DX: J44.1 Chronic obstructive pulmonary disease with (acute) exacerbation (principal); J32.9 Chronic sinusitis, unspecified; E87.6 Hypokalemia; F41.9 Anxiety disorder, unspecified; I25.2 Old myocardial infarction; I11.0 Hypertensive heart disease with heart failure; I50.9 Heart failure, unspecified; F31.9 Bipolar disorder, unspecified; I25.10 Atherosclerotic heart disease of native coronary artery without angina pectoris; E11.9 Type 2 diabetes mellitus without complications; K21.9 Gastro-esophageal reflux disease without esophagitis; E78.5 Hyperlipidemia, unspecified; F17.290 Nicotine dependence, other tobacco product, uncomplicated; Z91.018 Allergy to other foods; Z88.5 Allergy status to narcotic agent; Z88.8 Allergy status to other drugs, medicaments and biological substances; Z90.49 Acquired absence of other specified parts of digestive tract; Z90.710 Acquired absence of both cervix and uterus; Z98.890 Other specified postprocedural states; Z90.89 Acquired absence of other organs; Z98.51 Tubal ligation status

== ENCOUNTER → 2024-06-30 | Outpatient (CLI) | payer OTHER ==
[~2024-06-30] MED LIST changes: +AMOX-CLAV 875-1 EACH PO; +AVPAK AZITHROM250 M1 PO; +JANUVIA100 MG PO; +JARDIANCE25 MG PO; +ROZEREM8 MG PO
[2024-06-30 10:44] LABS: BILIRUBIN Negative (Negative); BLOOD Negative (Negative); CLARITY Clear (Clear); COLOR Yellow (Yellow); GLUCOSE 3+ (Negative); KETONE Negative (Negative); LEUKO ESTERASE Negative (Negative); NITRITE Negative (Negative); PH 6.5 (4.5-8.0); UROBILINOGEN 0.2 E.U./dl (0.0-1.0)
[2024-06-30 12:01] LABS: ALKALINE PHOSPHATASE 108 U/L (46-116); CHLORIDE 105 mmol/L (98-107); CHOLESTEROL 165 mg/dL (<200); FREE T4 1.16 ng/dl (0.89-1.76); LDL CHOLESTEROL 83 mg/dL (9-159); POTASSIUM 2.8 mmol/L (3.4-5.1); SGPT/ALT 16 U/L (5-49); TOTAL PROTEIN 6.9 gm/dL (6.0-8.0); TRIGLYCERIDES 208 mg/dl (<150)
[2024-06-30 12:02] LABS: VITAMIN D, 25-HYDROXY 18.3 ng/mL (30-100)
[2024-06-30 12:08] LABS: BUN < 5 mg/dl (9-23)
== END | disposition home or self-care (01) ==
LOC: LAB 10:13
PROVIDERS: ATTEND Internal Medicine
DX: E11.65 Type 2 diabetes mellitus with hyperglycemia (principal); E55.9 Vitamin D deficiency, unspecified; E78.5 Hyperlipidemia, unspecified; E04.9 Nontoxic goiter, unspecified

== ENCOUNTER 2024-08-28 18:30 | Emergency (ER) | payer OTHER ==
[~2024-08-28] VITALS: Wt 59.4 kg
[2024-08-28 18:48] VITALS: BP 134/68
[2024-08-28] MEDS ORDERED: Albuterol Sulf/Ipratropium 3 ML VIAL NEB ONE (18:55)
[2024-08-28] MEDS ORDERED: methylPREDNISolone sod succ 125 MG VIAL IM ONE (18:55)
[2024-08-28] MEDS ORDERED: MINIPRESS1 M1 PO (18:57)
[2024-08-28] MEDS ORDERED: NEURONTIN300 MG PO (18:57)
[2024-08-28] MEDS ORDERED: PANTOPRAZOLE SO40 MG PO (18:57)
[2024-08-28] MEDS ORDERED: TRULICITY0.75 MG/0. SC (18:57)
[2024-08-28] MEDS ORDERED: NICODERM CQ1 EAC2 T (18:58)
[2024-08-28] MEDS ORDERED: POTASSIUM CHLO20 ME3 PO (18:59)
[2024-08-28 19:13] LABS: BASO # 0.1 10*3/uL (0.0-0.1); BASO % 0.8 % (0.0-1.0); EOS # 0.4 10*3/uL (0.0-0.4); EOS % 4.7 % (1.0-4.0); HEMATOCRIT 46.4 % (37.0-47.0); MEAN CELL VOLUME 92.1 fl (81.0-99.0); MEAN CORPUSCULAR HGB 29.2 pg (27.0-31.0); MEAN CORPUSCULAR HGB CONC 31.7 g/dl (33.0-37.0); MEAN PLATELET VOLUME 10.7 fl (9.6-12.3); MONO # 0.6 10*3/uL (0.1-1.0); MONO % 6.5 % (3.0-9.0); NEUT # 4.9 10*3/uL (2.3-7.9); NEUT % 55.6 % (47.0-73.0); PLATELET COUNT AUTOMATED 277 10*3/uL (130-400); RED BLOOD COUNT 5.04 10*6/uL (4.10-5.10); WHITE BLOOD COUNT 8.8 10*3/uL (4.8-10.8)
[2024-08-28 19:35] LABS: BUN 8 mg/dl (9-23); CHLORIDE 105 mmol/L (98-107); POTASSIUM 3.6 mmol/L (3.4-5.1)
[2024-08-28] MEDS ORDERED: PREDNISONE50 MG PO (20:48)
== END 2024-08-28 21:05 | disposition home or self-care (01) ==
LOC: ED 18:30
PROVIDERS: Physician Assistant Medical
DX: J44.9 Chronic obstructive pulmonary disease, unspecified (principal); B97.4 Respiratory syncytial virus as the cause of diseases classified elsewhere; Z20.822 Contact with and (suspected) exposure to COVID-19; F41.9 Anxiety disorder, unspecified; F31.9 Bipolar disorder, unspecified; I25.10 Atherosclerotic heart disease of native coronary artery without angina pectoris; E11.9 Type 2 diabetes mellitus without complications; K21.9 Gastro-esophageal reflux disease without esophagitis; E78.5 Hyperlipidemia, unspecified; I50.9 Heart failure, unspecified; F17.200 Nicotine dependence, unspecified, uncomplicated; Z88.5 Allergy status to narcotic agent; Z88.8 Allergy status to other drugs, medicaments and biological substances; Z91.018 Allergy to other foods; Z90.49 Acquired absence of other specified parts of digestive tract; Z90.89 Acquired absence of other organs; Z98.890 Other specified postprocedural states; Z90.710 Acquired absence of both cervix and uterus

== ENCOUNTER → 2025-01-03 | Outpatient (CLI) | payer OTHER ==
[~2025-01-03] MED LIST changes: +MINIPRESS1 M1 PO; +NEURONTIN300 MG PO; +NICODERM CQ1 EAC2 T; +PANTOPRAZOLE SO40 MG PO; +POTASSIUM CHLO20 ME3 PO; +TRULICITY0.75 MG/0. SC
[2025-01-03 10:26] LABS: BILIRUBIN Negative (Negative); BLOOD Negative (Negative); CLARITY Clear (Clear); COLOR Yellow (Yellow); GLUCOSE 3+ (Negative); KETONE Negative (Negative); LEUKO ESTERASE Negative (Negative); NITRITE Negative (Negative); SPECIFIC GRAVITY 1.015 (1.001-1.030); UROBILINOGEN 0.2 E.U./dl (0.0-1.0)
[2025-01-03 11:06] LABS: ALKALINE PHOSPHATASE 99 U/L (46-116); BUN 6 mg/dl (9-23); CHLORIDE 105 mmol/L (98-107); CHOLESTEROL 104 mg/dL (<200); LDL CHOLESTEROL 49 mg/dL (9-159); POTASSIUM 3.7 mmol/L (3.4-5.1); SGPT/ALT 15 U/L (5-49); TOTAL PROTEIN 6.6 gm/dL (6.0-8.0); TRIGLYCERIDES 96 mg/dl (<150)
[2025-01-03 11:35] LABS: BACTERIA 1+; EPITHELIAL CELLS 31-40; MUCOUS 1+
[2025-01-03 11:56] LABS: VITAMIN D, 25-HYDROXY 68.3 ng/mL (30-100)
== END | disposition home or self-care (01) ==
LOC: LAB 10:04
PROVIDERS: ATTEND Internal Medicine
DX: J44.89 Other specified chronic obstructive pulmonary disease (principal); R05.9 Cough, unspecified; J18.9 Pneumonia, unspecified organism; M85.88 Other specified disorders of bone density and structure, other site; E11.65 Type 2 diabetes mellitus with hyperglycemia; E78.5 Hyperlipidemia, unspecified; E55.9 Vitamin D deficiency, unspecified; E04.9 Nontoxic goiter, unspecified

== ENCOUNTER → 2025-02-17 | Outpatient (CLI) | payer OTHER ==
[~2025-02-17] MED LIST changes: +CLARITIN10 M3 PO; -LIPITOR40 MG PO; +LIPITOR80 MG PO; +RIZATRIPTAN10 MG PO; +Regadenoson 0.4 MG/5 ML SYR IV ONE; +TERBINAFINE250 MG PO; +ZIPRASIDONE HCL60 M1 PO; -ZIPRASIDONE HCL80 M1 PO
== END | disposition home or self-care (01) ==
LOC: CARD 04:10
PROVIDERS: ATTEND Internal Medicine Cardiovascular Disease
DX: I20.9 Angina pectoris, unspecified (principal); I10 Essential (primary) hypertension; R06.02 Shortness of breath

== ENCOUNTER → 2025-06-16 | Outpatient (CLI) | payer OTHER ==
[~2025-06-16] MED LIST changes: -Regadenoson 0.4 MG/5 ML SYR IV ONE
[2025-06-16 11:30] LABS: BILIRUBIN Negative (Negative); BLOOD Negative (Negative); CLARITY Clear (Clear); COLOR Yellow (Yellow); KETONE Negative (Negative); LEUKO ESTERASE Negative (Negative); NITRITE Negative (Negative); PH 7.0 (4.5-8.0); SPECIFIC GRAVITY 1.020 (1.001-1.030); UROBILINOGEN 0.2 E.U./dl (0.0-1.0)
[2025-06-16 11:53] LABS: BACTERIA TRACE; LDL CHOLESTEROL 50 mg/dL (9-159); RBC 0-2 rbc/hpf (0-2); SGPT/ALT 12 U/L (5-49); WBC 0-2 wbc/hpf (0-5); YEAST TRACE
[2025-06-16 11:54] LABS: BUN < 5 mg/dl (9-23)
== END | disposition home or self-care (01) ==
LOC: LAB 10:43
PROVIDERS: ATTEND Internal Medicine
DX: E11.65 Type 2 diabetes mellitus with hyperglycemia (principal); E78.5 Hyperlipidemia, unspecified; E55.9 Vitamin D deficiency, unspecified; E04.9 Nontoxic goiter, unspecified